=== PATIENT | female | born 1955 | race American Indian/Alaskan Native ===

== ENCOUNTER 2016-06-22 08:02 | Emergency (ER) | payer OTHER, SELFPAY ==
--- NOTE | 2016-06-26 16:24 | ED Elopement Review ---
ED Pt Elopement review - Call Back decision Pt Call Back Decision: No action required
== END 2016-06-22 08:22 | disposition left against medical advice (07) ==
LOC: ED 08:02
DX: R00.2 Palpitations (principal); Z53.21 Procedure and treatment not carried out due to patient leaving prior to being seen by health care provider
CPT/HCPCS: 93005; 93010

== ENCOUNTER 2016-09-08 08:11 | Day surgery (SDC) | payer OTHER ==
[2016-09-08] MEDS ORDERED: WATER FOR IRRIG STERILE IR ONE ×2 (09:08→12:12)
[2016-09-08] MEDS ORDERED: WATER FOR IRRIG STERILE ONE (09:08)
--- NOTE | 2016-09-08 09:56 | Anesthesia Consultation ---
Anesthesia Consult and Med Hx Date of service: 09/08/16 - Airway Anesthetic Teeth Evaluation: Good ROM Head & Neck: Adequate Mental/Hyoid Distance: Adequate Mallampati Class: Class II Intubation Access Assessment: Probably Good - Pulmonary Exam CTA: Yes - Cardiac Exam Cardiac Exam: RRR - Pre-Operative Health Status ASA Pre-Surgery Classification: ASA2 Proposed Anesthetic Plan: MAC - Pulmonary Hx Smoking: Yes - Cardiovascular System Hx Hypertension: Yes - Gastrointestinal Hx Gastroesophageal Reflux Disease: Yes
--- NOTE | 2016-09-08 09:57 | Anesthesia Day of Surgery ---
Anesthesia Day of Surgery - Day of Surgery Patient Examined: Yes Patient H&P Reviewed: Yes Patient is NPO: Yes Beta Blockers: Yes
[2016-09-08] MEDS ORDERED: NACL 0.9% 1000 ML 1,000 ML IV SCH (10:00)
[2016-09-08] MEDS ORDERED: DIPRIVAN 10 MG/ML IV ONE ×2 (12:05)
--- NOTE | 2016-09-08 12:09 | Operative Report ---
Operative Report Operative Report: Date of procedure: 09/08/2016 Procedure: Colonoscopy hot biopsy polypectomy, submucosal injection, multiple cold biopsies of colon mass.. Attending physician: Brian Medel MD Community Associate: Brian Medel MD Indication: Patient is a 61-year-old female who presents for screening colonoscopy. Patient also has a history of guaiac-positive stool. A colonoscopy is now done evaluate patient's so that treatment may be directed based on the findings. . Consent: Informed consent was obtained after advising the patient and family regarding nature of this procedure, its indications, potential benefits as well as possible complications including but not limited to bleeding perforation and adverse reaction to medication, infection as well as other cardiopulmonary complications. An informed written and verbal consent was then obtained after due opportunity was provided for questions and answers. Monitoring: Patient was monitored continuously with pulse oximetry and electrocardiographic recordings as well as blood pressure recordings. Vital signs remained stable throughout this procedure with no untoward events. Preoperative assessment: Patient was assessed immediately prior to this procedure for capacity to tolerate monitored anesthesia care and moderate sedation as well as general anesthesia. Patient's ASA classification is 2, Mallampati class is 2, Hyomental distance is 3. Instrument: [employer] videocolonoscope Medications: Propofol given intravenously in divided doses. For details please refer to anesthesia records. Description of procedure: Patient was placed in the left lateral decubitus position after achieving sedation, a digital rectal examination was performed following which the colonoscope was introduced into the anal verge and advanced to the cecum which was identified by the cecal valve, the appendiceal orifice, as well as by the cecal strap and direct transillumination. The colonoscope was subsequently withdrawn with careful inspection of all mucosal surfaces. Patient tolerated this procedure well and was subsequently taken to the recovery room. The following findings were noted. Findings: Patient had a diminutive polyp in the sigmoid colon which was removed by hot biopsy polypectomy . It measured approximately 4 mm. There was a flat polyp in the descending colon that was removed by hot biopsy polypectomy. It measured approximately 6 mm. Patient had a partially obstructing mass in the mid transverse colon. It had a typical endoscopic appearance of colon cancer. It was very friable and ulcerated. It bled easily on contact. Both the proximal and distal margins of this mass were injected with submucosal injection of spot to tattoo the lesion for photo identification and to facilitate resection. There were scattered diverticula in the sigmoid colon and the descending colon as well as also a few in the ascending colon. The rest of the colon to the cecum was normal. There was substantial retained thick liquid stool in the cecum. Upon withdrawing the colonoscope, on the retroflex view at the anal verge, patient had prominent internal hemorrhoids. Impression: Multiple diminutive colon polyps status post hot biopsy polypectomy. Diverticulosis (mild). Partially obstructing ulcerated transverse colon mass with typical endoscopic appearance of cancer, status post cold biopsies and also submucosal injection of the proximal and distal margins. Internal hemorrhoids. Plan: Follow pathology report. Patient will need resection of the colon in the affected segment. Pending pathology, obtain a CT scan of the abdomen and pelvis. High-fiber diet. Patient may also benefit from hemorrhoidal band ligation in the future.
[2016-09-08] MEDS ORDERED: GI SPOT IJ ONE (12:32)
--- NOTE | 2016-09-08 12:57 | Discharge Summary ---
Short Stay Discharge Plan Activity: advance as tolerated Weight Bearing Status: Weight Bear as Tolerated Diet: regular Follow up with: LICO BRANDON MD [Primary Care Provider] - 7 Days
[2016-09-08 13:20] VITALS: BP 134/66
--- NOTE | 2016-09-08 13:52 | Post Anesthesia Evaluation ---
- Post Anesthesia Evaluation Patient Participated: Yes Airway Patent: Yes Stable Respiratory Function: Yes Nausea/Vomiting: No Temp > 96.8F: Yes Pain Manageable: Yes Adequeate Hydration: Yes Anesthesia Complications: No Block Receding Appropriately: Not Applicable Patient on Ventilator: No
== END 2016-09-08 08:12 | disposition home or self-care (01) ==
LOC: GIO 08:11
PROVIDERS: ATTEND Internal Medicine Gastroenterology
DX: C18.4 Malignant neoplasm of transverse colon (principal); K63.5 Polyp of colon; K57.30 Diverticulosis of large intestine without perforation or abscess without bleeding; K64.8 Other hemorrhoids; F17.210 Nicotine dependence, cigarettes, uncomplicated; K21.9 Gastro-esophageal reflux disease without esophagitis; I10 Essential (primary) hypertension; Z72.89 Other problems related to lifestyle; Z79.899 Other long term (current) drug therapy
CPT/HCPCS: 45380; 45381; 45384; 88305; J2704; J7030

== ENCOUNTER 2017-10-07 12:53 | Inpatient (IN) | payer OTHER, SELFPAY ==
[2017-10-07 13:44] LABS: Basophils # (Auto) 0.1 K/mm3 (0.0-0.1); Basophils % (Auto) 1.2 % (0.0-1.8); Eosinophils # (Auto) 0.3 K/mm3 (0.0-0.4); Eosinophils % (Auto) 3.9 % (0.0-4.3); Hematocrit 24.5 % (30.3-42.9); Hemoglobin 7.7 gm/dl (10.1-14.3); Lymphocytes # (Auto) 1.7 K/mm3 (1.2-5.4); Lymphocytes % (Auto) 21.2 % (13.4-35.0); Mean Corpuscular HGB Conc 32 % (30-34); Mean Corpuscular Volume 74 fl (79-97); Monocytes # (Auto) 0.6 K/mm3 (0.0-0.8); Monocytes % (Auto) 7.3 % (0.0-7.3); Platelet Count 324 K/mm3 (140-440); Red Blood Count 3.29 M/mm3 (3.65-5.03)
[2017-10-07 13:45] LABS: Mean Corpuscular Hemoglobin 24 pg (28-32); Red Cell Distribution Width 23.7 % (13.2-15.2)
--- NOTE | 2017-10-07 13:52 | Emergency Department Report ---
ED Recheck HPI - General Chief Complaint: Recheck/Abnormal Lab/Rx Stated Complaint: ABNORMAL LABS Time Seen by Provider: 10/07/17 13:37 Source: patient Mode of arrival: Ambulatory Limitations: No Limitations - History of Present Illness Initial Comments: 62-year-old female with a past medical history of hypertension, arthritis, and colon cancer status post second partial colectomy August 2017 presents to the hospital after being told that her hemoglobin was low and outpatient blood work. Patient had blood work drawn on the and she received a call on the to inform her that her hemoglobin was 7.1. Patient complains of dyspnea on exertion and feeling cold. No complaints of lightheadedness or syncope. She is being prepped for radiation. She denies melena, hematochezia, hematemesis, or abdominal pain. - Related Data Home Medications Medication Instructions Recorded Confirmed Last Taken Losartan [Cozaar] 100 mg PO QDAY 02/07/15 02/07/15 09/08/16 07:00 Previous Rx's Medication Instructions Recorded Last Taken Type Aspirin EC [Aspirin Enteric Coated 325 mg PO QDAY tablet 02/09/15 08/25/16 Rx TAB] HYDROcodone/APAP 5-325 [[place] 1 each PO Q6H PRN #30 tablet 02/09/15 Unknown Rx 5-325 mg TAB] Metoprolol [Lopressor TAB] 50 mg PO BID #60 tablet 02/09/15 09/08/16 07:00 Rx Nitroglycerin [Nitrostat] 0.4 mg SL Q5M PRN #30 tab 02/09/15 Unknown Rx Simvastatin [Zocor TAB] 20 mg PO QHS #30 tablet 02/09/15 09/07/16 Rx Triamter/Hctz 37.5-25 mg 1 tab PO QDAY #30 02/09/15 Unknown Rx [Maxzide-25] Allergies Allergy/AdvReac Type Severity Reaction Status Date / Time ALETHA Inhibitors AdvReac COUGH Verified 02/07/15 05:10 ED Review of Systems ROS: Stated complaint: ABNORMAL LABS Other details as noted in HPI Comment: All other systems reviewed and negative ED Past Medical Hx - Past Medical History Hx Hypertension: Yes Hx Arthritis: Yes Additional medical history: ECZEMA - Surgical History Additional Surgical History: HYSTERECTOMY. - Social History Smoking Status: Current Every Day Smoker Substance Use Type: Alcohol - Medications Home Medications: Home Medications Medication Instructions Recorded Confirmed Last Taken Type Losartan [Cozaar] 100 mg PO QDAY 02/07/15 02/07/15 09/08/16 07:00 History Aspirin EC [Aspirin Enteric Coated 325 mg PO QDAY tablet 02/09/15 08/25/16 Rx TAB] HYDROcodone/APAP 5-325 [[place] 1 each PO Q6H PRN #30 tablet 02/09/15 Unknown Rx 5-325 mg TAB] Metoprolol [Lopressor TAB] 50 mg PO BID #60 tablet 02/09/15 09/08/16 07:00 Rx Nitroglycerin [Nitrostat] 0.4 mg SL Q5M PRN #30 tab 02/09/15 Unknown Rx Simvastatin [Zocor TAB] 20 mg PO QHS #30 tablet 02/09/15 09/07/16 Rx Triamter/Hctz 37.5-25 mg 1 tab PO QDAY #30 02/09/15 02/07/15 Unknown Rx [Maxzide-25] ED Physical Exam - General Limitations: No Limitations - Other Other exam information: General: No limitations, patient is alert in no acute distress Head exam: Atraumatic, normocephalic Eyes exam: Normal appearance, nonicteric sclera ENT: Moist mucous membrane, normal oropharynx Neck exam: Normal inspection, full range of motion, no meningismus nontender Respiratory exam: Clear to auscultation bilateral, no wheezes, rales, crackles Cardiovascular: Normal rate and rhythm, normal heart sounds Abdomen: Soft, nondistended, and nontender, with normal bowel sounds, no rebound, or guarding Extremity: Full range of motion normal inspection no deformity Back: Normal Inspection, full range of motion, no tenderness Neurologic: Alert, oriented x3, cranial nerves intact, no motor or sensory deficit Psychiatric: normal affect, normal mood Skin: Warm, dry, intact ED Course Vital Signs 10/07/17 13:08 Temperature 98.1 F Pulse Rate 76 Blood Pressure 116/43 O2 Sat by Pulse 100 Oximetry ED Recheck MDM - Medical Decision Making ddx gi bleed, cancer, iron deficiency anemia, anemia in chronic dz Patient is symptomatic with a hemoglobin of 7.7. Most recent baseline on file is from 2015 the hemoglobin at 10-11. Hospitalist consultation for admission and blood transfusion since patient is symptomatic with shortness of breath on exertion Renal insufficiency Once again most recent baseline was 2014 and renal function normal at that time Chronicity of renal sufficiency unknown Critical care attestation.: If time is entered above; I have spent that time in minutes in the direct care of this critically ill patient, excluding procedure time. ED Disposition Clinical Impression: Microcytic anemia, Renal insufficiency Disposition: OP ADMIT IP TO THIS HOSP Is pt being admited?: Yes Condition: Stable Time of Disposition: 14:12 (Dr Lucia to admit/dispo)
[2017-10-07 14:00] LABS: Calcium 9.2 mg/dL (8.4-10.2)
--- NOTE | 2017-10-07 14:32 | History and Physical Report ---
History of Present Illness Chief complaint: I feel weak History of present illness: 62 YO Female with HTN, OA, Eczema, Nicotine Dependence, Colon Cancer presents to ED for evaluation. Pt states that she has experienced weakness, decreased exercise tolerance, shortness of breath for the past week, with worsening symptoms over the past 2 days. Pt seen and evaluated by PCP and found to have symptomatic anemia with hgb of 7.1. Pt sent to [facility] for further care and evaluation. Pt seen and evaluated in ED and found to have symptomatic anemia, ARF, as well as acidosis. Pt transfused with PRBC and admitted to medical floor. Pt denies fever, chills, CP, Palpitations, NVD, Syncope, trauma, BRBPR, melena, productive cough, or recent ill contacts. Past History Past Medical History: arthritis, cancer, hypertension Past Surgical History: bowel surgery Social history: single, smoking. denies: alcohol abuse, prescription drug abuse Family history: hypertension Medications and Allergies Allergies Allergy/AdvReac Type Severity Reaction Status Date / Time ALETHA Inhibitors AdvReac COUGH Verified 02/07/15 05:10 Home Medications Medication Instructions Recorded Confirmed Last Taken Type Losartan [Cozaar] 100 mg PO QDAY 02/07/15 02/07/15 09/08/16 07:00 History Aspirin EC [Aspirin Enteric Coated 325 mg PO QDAY tablet 02/09/15 08/25/16 Rx TAB] HYDROcodone/APAP 5-325 [[place] 1 each PO Q6H PRN #30 tablet 02/09/15 Unknown Rx 5-325 mg TAB] Metoprolol [Lopressor TAB] 50 mg PO BID #60 tablet 02/09/15 09/08/16 07:00 Rx Nitroglycerin [Nitrostat] 0.4 mg SL Q5M PRN #30 tab 02/09/15 Unknown Rx Simvastatin [Zocor TAB] 20 mg PO QHS #30 tablet 02/09/15 09/07/16 Rx Triamter/Hctz 37.5-25 mg 1 tab PO QDAY #30 02/09/15 02/07/15 Unknown Rx [Maxzide-25] Review of Systems Constitutional: weakness, no weight loss, no weight gain, no fever, no chills Ears, nose, mouth and throat: no ear pain, no ear discharge, no tinnitis, no decreased hearing, no nose pain, no nasal congestion Breasts: no change in shape, no swelling, no mass Cardiovascular: no chest pain, no orthopnea, no palpitations, no rapid/ irregular heart beat, no edema, no syncope Respiratory: no cough, no cough with sputum, no excessive sputum, no hemoptysis , no shortness of breath Gastrointestinal: no abdominal pain, no nausea, no vomiting, no diarrhea Genitourinary Female: no pelvic pain, no flank pain, no menorrhagia, no dysuria , no urinary frequency, no urgency Rectal: no pain, no incontinence, no bleeding Musculoskeletal: no neck stiffness, no neck pain, no shooting arm pain, no arm numbness/tingling, no low back pain, no shooting leg pain, no leg numbness/ tingling Integumentary: no rash, no pruritis, no redness, no sores, no wounds, no jaundice, no boils Neurological: no transient paralysis, no paralysis, no weakness, no parathesias , no numbness, no tingling, no seizures, no syncope Psychiatric: no anxiety, no memory loss, no change in sleep habits, no sleep disturbances, no insomnia, no hypersomnia, no change in appetite, no change in libido Endocrine: no cold intolerance, no heat intolerance, no polyphagia, no excessive thirst, no polydipsia, no polyuria, no nocturia, no excessive sweating Hematologic/Lymphatic: no easy bruising, no easy bleeding, no lymphadenopathy, no lymphedema Allergic/Immunologic: no urticaria, no allergic rhinitis, no wheezing, no persistent infections, no anaphylaxis, no angioedema Exam - Constitutional Vitals: Temp Pulse Resp BP Pulse Ox 98.1 F 76 116/43 100 10/07/17 13:08 10/07/17 13:08 10/07/17 13:08 10/07/17 13:08 General appearance: Present: mild distress, obese - EENT Eyes: Present: PERRL ENT: hearing intact, clear oral mucosa - Neck Neck: Present: supple, normal ROM - Respiratory Respiratory effort: normal Respiratory: bilateral: CTA - Cardiovascular Heart Sounds: Present: S1 & S2. Absent: rub, click - Extremities Extremities: pulses symmetrical, No edema Peripheral Pulses: within normal limits - Abdominal General gastrointestinal: Present: soft, non-tender, non-distended, normal bowel sounds Female genitourinary: Present: normal - Integumentary Integumentary: Present: clear, warm, dry - Musculoskeletal Musculoskeletal: generalized weakness - Psychiatric Psychiatric: appropriate mood/affect, intact judgment & insight - Neurologic Neurologic: CNII-XII intact, moves all extremities Results - Labs CBC & Chem 7: 10/07/17 13:26 10/07/17 13:26 Labs: Abnormal lab results 10/07/17 10/07/17 Range/Units 13:26 13:26 RBC 3.29 L (3.65-5.03) M/mm3 Hgb 7.7 L (10.1-14.3) gm/dl Hct 24.5 L (30.3-42.9) % MCV 74 L (79-97) fl MCH 24 L (28-32) pg RDW 23.7 H (13.2-15.2) % Carbon Dioxide 17 L (22-30) mmol/L BUN 34 H (7-17) mg/dL Creatinine 2.0 H (0.7-1.2) mg/dL Assessment and Plan - Patient Problems (1) Symptomatic anemia Current Visit: Yes Status: Acute Plan to address problem: PRBC transfusion, repeat cbc, supportive care. (2) ARF (acute renal failure) Current Visit: Yes Status: Acute Qualifiers: Acute renal failure type: with acute tubular necrosis Qualified Code(s): N17.0 - Acute kidney failure with tubular necrosis Plan to address problem: IVF resuscitation, monitor uop q shift, monitor serum creatnine (3) Acidosis Current Visit: Yes Status: Acute Plan to address problem: IVF resuscitation therapy, repeat bmp (4) Colon cancer Current Visit: Yes Status: Acute Qualifiers: Colon location: transverse Qualified Code(s): C18.4 - Malignant neoplasm of transverse colon Plan to address problem: S/P colon resection, outpatient oncology f/u. LFT, D dimer (5) DVT prophylaxis Current Visit: Yes Status: Acute Plan to address problem: SCD to BLE while in bed
[2017-10-07] MEDS ORDERED: SODIUM CHLORIDE FLUSH SYRINGE 10 ML IV PRN (14:47)
[2017-10-07] MEDS ORDERED: PROVENTIL IH PRN (14:47)
[2017-10-07] MEDS ORDERED: TYLENOL PO PRN (14:47)
[2017-10-07] MEDS ORDERED: ZOFRAN IV PRN (14:47)
[2017-10-07 14:57] LABS: Alanine Aminotransferase 10 units/L (7-56); Albumin 3.9 g/dL (3.9-5)
[2017-10-07 14:59] LABS: Bilirubin,Direct < 0.2 mg/dL (0-0.2)
[2017-10-07] MEDS ORDERED: NACL 0.9% 500 ML 500 ML IV ONE ×2 (15:00→18:00)
[2017-10-07] MEDS ORDERED: NACL 0.45% 1,000 ML IV SCH (15:00)
[2017-10-07] MEDS ORDERED: NACL 0.45% 2,000 ML IV SCH (15:00)
[2017-10-07] MEDS: SODIUM CHLORIDE FLUSH SYRINGE 10 ML IV SCH (21:49)
[2017-10-08 10:34] LABS: Hematocrit 30.4 % (30.3-42.9); Hemoglobin 9.8 gm/dl (10.1-14.3)
--- NOTE | 2017-10-08 10:52 | Progress Note ---
Assessment and Plan / Symptomatic anemia PRBC transfusion, repeat cbc, supportive care. /ARF (acute renal failure) IVF resuscitation, monitor uop q shift, monitor serum creatnine / Acidosis IVF resuscitation therapy, repeat bmp /Colon cancer S/P colon resection, outpatient oncology f/u. LFT, D dimer /Hypertension, BP stable without any medications, continue to monitor / DVT prophylaxis SCD to BLE while in bed Physical exam: GENERAL: well-developed and well-nourished -Polish female lying on bed appeared to be in no discomfort. HEENT: Normocephalic. Atraumatic. No conjunctival congestion or icterus. Patient has moist mucous membranes. NECK: Supple. Trachea midline. CHEST/LUNGS: Clear to auscultated bilaterally, breathing nonlabored. No wheezes crackles or rhonchi. HEART/CARDIOVASCULAR: Regular in rate and rhythm. S1 and S2 positive. ABDOMEN: Abdomen is soft, nontender. Patient has normal bowel sounds. SKIN: There is no rash. Warm and dry. NEURO: No focal motor deficit. Follows command. MUSCULOSKELETAL: No joint effusion or tenderness. EXTRIMITY: No edema, no cyanosis or clubbing. PSYCH: Cooperative. Subjective Date of service: 10/08/17 Interval history: Patient seen and examined. Medical records and medication list reviewed. No acute event overnight noted by the RN. Patient denies any chest pain or difficulty breathing. Patient is tolerating diet. Discussed plan of care at bedside with patient. Objective - Constitutional Vitals: Vital Signs - 12hr 10/07/17 10/07/17 10/08/17 23:08 23:38 00:08 Temperature 98.2 F 98.4 F 98.4 F Pulse Rate 70 77 78 Respiratory 18 18 20 Rate Blood Pressure 124/74 117/49 130/70 O2 Sat by Pulse 100 100 Oximetry 10/08/17 10/08/17 10/08/17 00:15 00:38 01:08 Temperature 98.3 F 98.8 F 98.0 F Pulse Rate 69 83 74 Respiratory 16 18 18 Rate Blood Pressure 122/61 140/68 137/67 O2 Sat by Pulse 100 100 100 Oximetry 10/08/17 07:58 Temperature 97.8 F Pulse Rate 78 Respiratory 16 Rate Blood Pressure 133/62 O2 Sat by Pulse 100 Oximetry - Labs CBC & Chem 7: 10/08/17 09:56 10/09/17 06:51 Labs: Abnormal lab results 10/07/17 10/07/17 10/07/17 Range/Units 13:26 13:26 13:26 RBC 3.29 L (3.65-5.03) M/mm3 Hgb 7.7 L (10.1-14.3) gm/dl Hct 24.5 L (30.3-42.9) % MCV 74 L (79-97) fl MCH 24 L (28-32) pg RDW 23.7 H (13.2-15.2) % D-Dimer (0-234) ng/mlDDU Carbon Dioxide 17 L (22-30) mmol/L BUN 34 H (7-17) mg/dL Creatinine 2.0 H (0.7-1.2) mg/dL Crossmatch See Detail 10/07/17 10/08/17 Range/Units 17:29 09:56 RBC (3.65-5.03) M/mm3 Hgb 9.8 L (10.1-14.3) gm/dl Hct (30.3-42.9) % MCV (79-97) fl MCH (28-32) pg RDW (13.2-15.2) % D-Dimer 1333.50 H (0-234) ng/mlDDU Carbon Dioxide (22-30) mmol/L BUN (7-17) mg/dL Creatinine (0.7-1.2) mg/dL Crossmatch
[2017-10-08] MEDS: SODIUM CHLORIDE FLUSH SYRINGE 10 ML IV SCH ×2 (13:19→22:48)
[2017-10-08 16:43] LABS: Calcium 9.3 mg/dL (8.4-10.2)
[2017-10-08] MEDS ORDERED: NACL 0.9% 1000 ML 1,000 ML IV SCH (19:00)
[2017-10-09 08:48] VITALS: BP 154/72
[2017-10-09] MEDS: SODIUM CHLORIDE FLUSH SYRINGE 10 ML IV SCH (09:27)
--- NOTE | 2017-10-09 11:04 | Discharge Summary ---
Providers - Providers Date of Admission: 10/07/17 15:19 Date of discharge: 10/09/17 Attending physician: LAUREEN JAMESON Primary care physician: TRAFFIC MAINTENANCE SUPERVISOR Hospitalization Condition: Stable Hospital course: Discharge diagnosis: / Symptomatic anemia s/p 2 units PRBC transfusion, repeat cbc showed h/h stable / ARF (acute renal failure) Likely vasomotor nephropathy Improved with IVF resuscitation, Cr improved from 2.0 to 1.4 on discharge ACEI and diuretics hold on discharge /HTN, benign discharged with metoprolol and norvasc Can resume ACEI and diuretics if needed for BP control outpt once renal function stabilizes /metabolic Acidosis likely from renal failure and dehydration Improved with IVF resuscitation therapy / Colon cancer S/P colon resection, outpatient oncology f/u. / DVT prophylaxis provided SCD to BLE while in bed Disposition: DC-01 TO HOME OR SELFCARE Time spent for discharge: 32 minutes Exam - Constitutional Vitals: Temp Pulse Resp BP Pulse Ox 98.7 F 68 16 154/72 100 10/09/17 08:43 10/09/17 08:43 10/09/17 08:43 10/09/17 08:43 10/09/17 08:43 General appearance: Present: no acute distress, well-nourished - EENT Eyes: Present: PERRL ENT: hearing intact, clear oral mucosa - Neck Neck: Present: supple, normal ROM - Respiratory Respiratory effort: normal Respiratory: bilateral: CTA - Cardiovascular Heart Sounds: Present: S1 & S2. Absent: rub, click - Extremities Extremities: pulses symmetrical, No edema Peripheral Pulses: within normal limits - Abdominal General gastrointestinal: Present: soft, non-tender, non-distended, normal bowel sounds - Integumentary Integumentary: Present: clear, warm, dry - Musculoskeletal Musculoskeletal: gait normal, strength equal bilaterally - Psychiatric Psychiatric: appropriate mood/affect, intact judgment & insight - Neurologic Neurologic: CNII-XII intact, moves all extremities Plan Activity: advance as tolerated Weight Bearing Status: Weight Bear as Tolerated Diet: low fat, low salt Additional Instructions: Repeat CBC and BMP in one week. Follow up with: PRIMARY CARE, [Primary Care Provider] - 7 Days Prescriptions: amLODIPine [Norvasc] 10 mg PO DAILY #30 tab Metoprolol [Lopressor TAB] 50 mg PO BID #60 tablet
== END 2017-10-09 13:59 | disposition home or self-care (01) | DRG 811 ==
LOC: ED 12:53 → 3A 15:19
PROVIDERS: ADMIT Internal Medicine; ATTEND Internal Medicine
PROC: 30233N1 Transfusion of Nonautologous Red Blood Cells into Peripheral Vein, Percutaneous Approach (ICD-10-PCS; principal; 2017-10-07)
DX: D64.9 Anemia, unspecified (principal); N17.0 Acute kidney failure with tubular necrosis; E87.2 Acidosis; M19.90 Unspecified osteoarthritis, unspecified site; F17.200 Nicotine dependence, unspecified, uncomplicated; I10 Essential (primary) hypertension; E86.0 Dehydration; Z90.49 Acquired absence of other specified parts of digestive tract; Z79.899 Other long term (current) drug therapy; Z90.710 Acquired absence of both cervix and uterus; Z72.89 Other problems related to lifestyle; Z79.82 Long term (current) use of aspirin; Z82.49 Family history of ischemic heart disease and other diseases of the circulatory system; Z85.038 Personal history of other malignant neoplasm of large intestine
CPT/HCPCS: 36415; 80048; 80074; 85014; 85018; 85025; 85379; 86850; 86900; 86901; 86920; 99406; J7030; J7040; P9016